=== PATIENT | female | born 1955 | race Caucasian/White ===

== ENCOUNTER 2016-08-29 01:40 | Inpatient (IN) | payer OTHER ==
--- NOTE | ~2016-08-29 | CON ---
PATIENT'S NAME: QUINTON POWELL [facility] AGE: 61 Y [address] ROOM: [address] [address] LOCATION: GICU ADMIT DATE: 08/29/2016 Consultation DISCHARGE DATE: FAMILY PHYSICIAN: PHYSICIAN, UNKNOWN ATTENDING PHYSICIAN: EMELINA BRAUN I was called emergently to the garage laborer to intubate for Dr. Garcia for a garage laborer procedure on a patient who had been life-flighted to the hospital. She was responsive with no blood pressures. She was cyanotic in her hands and feet. It was decided initially that any attempted intubation would lower her blood pressures more with any type of induction agents, so awaited for the procedure to start. In the mid of garage laborer procedure, the patient transitioned to an apparent code status, and I did give her 25 mg of ketamine and 120 mg of succinylcholine and intubated her with a 7.5 ET tube with a positive visualization of her vocal cords, bilateral chest rise, positive end-tidal CO2, bilateral breath sounds. There was no O2 saturation at that point, which was thought to be secondary to her poor perfusion status and partial code blue situation. After 10 minutes, there was still no SaO2, but continued to have bilateral positive breath sounds and was left in the care of the respiratory therapy team for potential transport or of code situation. SUSIE C CARA LEDEZMA CRNA TCMustapha/modl /[id number] d: 08/29/16 0417 t: 08/30/16 1104, CONSULTATION REPORT
--- NOTE | ~2016-08-29 | DS ---
PATIENT'S NAME: QUINTON POWELL [facility] AGE: 61 Y [address] ROOM: [place] [address] LOCATION: [facility] ADMIT DATE: 08/29/2016 Discharge Summary DISCHARGE DATE: 08/29/2016 FAMILY PHYSICIAN: Physician, Unknown ATTENDING PHYSICIAN: Emelina Braun Summary DATE OF : 08/29/2016 at 4:04 a.m. DIAGNOSES: 1. Cardiogenic shock. 2. Hypotension, despite being on 4 pressors with intermittent boluses of epinephrine. 3. Hypoxia on 10 L of oxygen. 4. Acute coronary syndrome. The patient was brought emergently and airlifted from [facility] to the cardiac laborer filter plant at [facility]. Upon arrival, the patient was hypotensive with blood pressure in the 60s as well as mottled skin, cold, and clammy, and she was in a diagnosis of cardiogenic shock. Pulse was very feeble, however, able to get pulse and placed Impella for support immediately, and despite aggressive volume resuscitation, Impella without any significant output. She went into asystole, and the code was ran according to the ACLS protocol. She also had a sinus rudi as well as episodes of idioventricular rhythm with heart rates in the 20s, and pacemaker was placed, and she was paced at about 80 beats per minute. Anesthesia was also present in the room, and once she was severely hypoxic, she was intubated by them on 100%. Code was run for approximately 30 minutes according to the ACS protocol without any significant return of blood pressure or pulse. She was in asystole, and code was called, and the patient was pronounced in the laborer filter plant. I did discuss with the family members, and they declined autopsy at this time. EMELINA BRAUN MD AT/modl /[id number] d: 08/29/16 1325 t: 09/01/16 1738, DISCHARGE SUMMARY
--- NOTE | ~2016-08-29 | HP ---
[facility] 61 Y [address] ROOM: [place] [address] LOCATION: [facility] ADMIT DATE: 08/29/2016 History & Physical DISCHARGE DATE: 08/29/2016 FAMILY PHYSICIAN: PHYSICIAN, UNKNOWN ATTENDING PHYSICIAN: EMELINA BRAUN REASON FOR TRANSFER: Cardiogenic shock/hypotension/acute coronary syndrome. HISTORY OF PRESENTING ILLNESS: The patient is a 61-year-old female, who was in the emergency room at [place] and found to be hypotensive with blood pressure of 40/20 mmHg. Dopamine drip was started and EKG was obtained. The patient had marked ST depressions in inferior, anterolateral leads with ST elevation in leads AVR and V1. The patient complained of chest pain initially and shortness of breath as well per ER physician in [place]. She does not have any significant cardiac history in the past, she does have history of depression and fibromyalgia. The patient was airlifted on max doses of dopamine, epinephrine, norepinephrine, and phenylephrine drips. Her blood pressure was in the 60s on 4 pressors, and during transfer, she required intermittent boluses of epinephrine to keep improve her blood pressure. She was saturating about 90% on 10 L of oxygen when she arrived to the labor relations teacher. When she came in to the labor relations teacher, here her skin was mottled and she was cold, and she was awake. She did not complain of any significant chest pain. REVIEW OF SYSTEMS: Unable to obtain due to critical situation the patient was in and urgency to proceed with cath. PAST MEDICAL HISTORY: Depression and fibromyalgia. PAST SURGICAL HISTORY: Not known. FAMILY HISTORY: Not known. SOCIAL HISTORY: The patient has a family, and her family is here in the waiting room. PATIENT'S NAME: SHERRY [facility] AGE: 61 Y [address] ROOM: [place] [address] LOCATION: [facility] ADMIT DATE: 08/29/2016 History & Physical DISCHARGE DATE: 08/29/2016 FAMILY PHYSICIAN: , UNKNOWN ATTENDING PHYSICIAN: EMELINA BRAUN PHYSICAL EXAMINATION: VITAL SIGNS: Blood pressure 60 mmHg systolic, respirations 28, and O2 saturations 90% on 10 L. NECK: Positive JVD, rapid rate. HEENT: Mucous membranes dry. SKIN: Mottled and cold. EYES: No xanthelasma. Sclerae white. NECK: Supple. ABDOMEN: Obese. Bowel sounds are positive. EXTREMITIES: Pulse thready, 1+, bilateral femoral. No lower extremity edema. NEUROLOGIC: She is awake and in severe distress. LABORATORY DATA: Unable to obtain in [place]. EKG: Atrial fibrillation with right bundle-branch block. Diffuse ST depressions in inferior and anterolateral leads with ST elevation in leads AVR and V1. IMPRESSION: 1. Cardiogenic shock. 2. Hypotension, on max doses of 4 pressors including epinephrine, norepinephrine, dopamine, and phenylephrine, and requiring intermittent doses of epinephrine boluses. 3. Hypoxia, on 10 L of oxygen saturating 90%. 4. Acute coronary syndrome based on the ECG finding and presentation of cardiogenic shock and ST elevation in AVR and V1 with diffuse ST depressions. She likely had left main stenosis or critical triple-vessel disease. PLAN: The patient was in the labor relations teacher and femoral a access was obtained immediately, and an Impella was placed to help with hemodynamic support given her cardiogenic shock and hypotension despite being on 4 pressors. She went into asystole, and the code was ran according to the ACLS protocol for about 30 minutes. Despite Impella being placed, she was not having enough cardiac output, at one point she did have up to 1.5 L, and fluid boluses were given directly through the sheath were also given. A transvenous pacemaker was also placed due to severe sinus bradycardia and idioventricular rhythm with heart rate in the 20s and we paced her at 80 beats per minute. CPR was performed according to the ACLS code protocol. She received multiple doses ofepinephrine, atropine, vasopressin, sodium bicarb according to the protocol,and we were just not able to achieve any blood pressure or pulse, and after 30 minutes, the code was called. The patient was pronounced in the cath PATIENT'S NAME: QUINTON POWELL [facility] AGE: 61 Y [address] ROOM: [address] [address] LOCATION: [facility] ADMIT DATE: 08/29/2016 History & Physical DISCHARGE DATE: 08/29/2016 FAMILY PHYSICIAN: PHYSICIAN, UNKNOWN ATTENDING PHYSICIAN: EMELINA BRAUN lab. I discussed with the family members regarding her critical situation when she arrived and they understand. They do not want any autopsy at this time. Cause of is likely cardiogenic shock, acute coronary syndrome, and hypotension. EMELINA BRAUN MD AT/nishant /[id number] D: [id number] T: [id number] HISTORY & PHYSICAL
--- NOTE | ~2016-08-29 | CATH ---
Cardiac Diagnostic + PCI Report Demographics Patient Name SHERRY ALCANTARA Gender Female Date of 1955 Age 61 year(s) Patient Number [id number] Date of Study 08/29/2016 Visit Number [id number] Room Number G6[address] [place] [id number] Ht Wt 95.5 kg Accession Number [id number] Referring Stemper Charmaine SOLORZANO Primary Physician Physician Performing [facility] Secondary Physician Physician Makayla BENTON Diagnostic [facility] Assisting Physician Physician Makayla BENTON Interventional [facility] Physician Water Plumber Physician Makayla BENTON Addendum Edits completed on documentation Findings and Conclusions Diagnostic Findings and Conclusion Cardiogenic Shock Hypotension on max dose of 4 pressors (epi, norepi, phenylephrine and dopamine and intermittent iv pushes of epi to maintain SBP). Upon arrival to cardiac labor delivery specialist, SBP was in the 60's Acute Coronary Syndrome with WEI in leads V1, aVR, RBBB and diffuse ST depression in the rest of the leads, suggestive of LM/critical triple vessel CAD Hypoxia on 10 L of oxygen Diagnostic Recommendations Impella placement for cardiogenic shock followed by cardiac cath. Interventional Findings and Conclusion Successful placement of impella via rt femoral artery access for cardiogenic shock, persistent hypotension on max doses of 4 pressors as listed above. Patient continued to decompensate, despite impella placement and vasopressors. She had worsening shortness of breath, worsening hypoxia, and went into asystole and ACLS protocol was followed. Temp pacer placed as well to help with episodes of severe bradycardia. Patient was intubated emergently by anesthesia team to help maintain sats. Patient did not have pulse and continued to be in asystole. Code was terminated. Interventional Recommendations Patient in the Production Assistant at 0404. No coronary angiography performed. I informed patient's family, they were not interested in autopsy. Procedure Description The patient was brought to the diagnostic cardiac catheterization-EP laboratory by emergency personal. Physician deemed procedure as EMERGENT. The planned puncture-incision site(s) were shaved and prepped with ChloraPrep and draped in the usual sterile manner. Supplemental oxygen was delivered by a registered nurse under physician guidance. Surface ECG rhythm, blood pressure measurement, and pulse oximetry were monitored throughout the procedure. Arterial access. The access site was infiltrated with lidocaine. The vessel was entered with the Seldinger technique. A sheath was advanced into the vessel and used for catheter placement. Venous access. The access site was infiltrated with lidocaine. The vessel was entered with the Seldinger technique. A sheath was advanced into the vessel and used for catheter placement. Impella Insertion: An Iliac angio was performed. A 6FR sheath was placed into the artery. An Amplatz Super Stiff wire was advanced into the ascending aorta. Multiple dilations were performed on the femoral artery to ultimately place a 14 FR sheath. Once that was accomplished the AL catheter was then placed into the left ventricular cavity and the Amplatz wire was withdrawn. A .018 wire was then preshaped and placed into the left ventricle. Subsequently, the Impella device was placed into the left ventricle and could be seen to be in the cardiac apex. Placement was confirmed using fluoro and the Impella console. Temporary pacing. Pacing was achieved from the right ventricular apex. Threshold verification and amplitude adjustment were performed. The temporary pacemaker was removed at the end of the procedure. Patient continued to deteriorate. CPR initiated and continued for several minutes. Pulse was checked several times and unable to palpate. Latonia Martinez was called at 0404 and patient in the Production Assistant. Diagnostic Cath Status: Salvage Interventional Cath Status: Salvage Procedure Procedure Type Diagnostic procedure:Support:, Temporary Pacemaker PCI procedure:Support:, Impella:, Insertion Indications: Acute AK and Cardiogenic shock. Procedure Data Procedure Date Date: 08/29/2016Start: 03:11 AMEnd: 04:25 AM Entry Locations - Retrograde Percutaneous access was performed through the Right Femoral artery. A 6 Fr sheath was inserted. This was exchanged for a 10 Fr sheath. The sheath was exchanged again for a 14 Fr sheath. Entry Comments: Site used for Impella insertion. - Percutaneous access was performed through the Left Femoral vein (Primary location). A 6 Fr sheath was inserted. Procedure Medications Order and Administration + + + + + !Time !Medication !Dosage !Route ! + + + + + !08/29/2016 03:17 !Heparin (ACC_3) !4000 units !I.V. ! !AM ! ! ! ! + + + + + !08/29/2016 03:20 !Angiomax (Bivalirudin) !70 mg !I.V. bolus ! !AM !(ACC_5) ! ! ! + + + + + !08/29/2016 03:22 !Angiomax (Bivalirudin) !1.75 mg/kg/hr!I.V. drip ! !AM !(ACC_5) ! ! ! + + + + + !08/29/2016 03:25 !Zofran !4 mg !I.V. ! !AM ! ! ! ! + + + + + !08/29/2016 03:31 !Atropine !1 mg !I.V. ! !AM ! ! ! ! + + + + + !08/29/2016 03:32 !Epinephrine !1 mg !I.V. ! !AM ! ! ! ! + + + + + !08/29/2016 03:40 !Epinephrine !1 mg !I.V. ! !AM ! ! ! ! + + + + + !08/29/2016 03:45 !Epinephrine !1 mg !I.V. ! !AM ! ! ! ! + + + + + !08/29/2016 03:51 !Sodium Bicarbonate (Bolus) !1 mg !I.V. bolus ! !AM ! ! ! ! + + + + + !08/29/2016 03:52 !Epinephrine !1 mg !I.V. ! !AM ! ! ! ! + + + + + !08/29/2016 03:56 !Sodium Bicarbonate (Bolus) !1 mg !I.V. bolus ! !AM ! ! ! ! + + + + + !08/29/2016 04:00 !Epinephrine !1 mg !I.V. ! !AM ! ! ! ! + + + + + !08/29/2016 04:02 !Sudhakar-Synephrine !200 mcg !I.V. bolus ! !AM !(Phenylephrine) ! ! ! + + + + + !08/29/2016 04:02 !Epinephrine !1 mg !I.V. ! !AM ! ! ! ! + + + + + !08/29/2016 04:04 !Vasopressin !40 units !I.V. ! !AM ! ! ! ! + + + + + !08/29/2016 03:35 !Succinylcholine !120 mg !I.V. ! !AM ! ! ! ! + + + + + Devices Used - A6 Fr. BS Angled Pigtail Diag. Catheterwas used for:Impella Placement.Unable to cannulate the vessel. - A5 Fr. BS JR 4 Diag. Catheterwas used for:Impella Placement.Unable to cannulate the vessel. - A5 Fr. BS AL1 Diag. Catheterwas used for:Impella Placement.Unable to cannulate the vessel. - A6 Fr. BS Angled Pigtail Diag. Catheterwas used for:Impella Placement. - A5 Fr. BS JL 3.5 Diag. Catheterwas used for:Was not used. - A5 Fr. BS JL 4 Diag. Catheterwas used for:Was not used. Contrast Material - Isovue 3700 ml Fluoroscopy Time: Diagnostic: 8:54 minutes. Total: 8:54 minutes. Fluoroscopy Dose: Diagnostic: 300 mGy. Total: 300 mGy. Other Mechanical Ventricular Support: Inserted during procedure and prior to PCI. Medical History Performed Procedures and Imaging Results - No ACC stress or imaging studies were performed. Allergies - No known allergies. Admission Data Admission Date: 08/29/2016 Admission Time: 01:49 AM Admit Source: Transfer acute care facility Insurance Payors: None. Clinical Evaluation Leading to Procedure - The patient's CAD presentation was assessed as: STEMI.The symptom onset was first noted on 08/29/2016 12:30 AM(time was estimated). - The patient's anginal syndrome during the past two weeks was assessed as: Class IV according to the [place] Cardiovascular Society Classification System (CCS). - The patient has been in a state of cardiogenic shock within the last 24 hrs. Hemodynamics Condition: Rest Heart Rate: 78 bpm Pressures (mmHg) +-----+ + !Site !Pressure ! +-----+ + !FA !83/48 (59) ! +-----+ + !AO !/ () ! +-----+ + !AO !/ () ! +-----+ + !AO !/ (15) ! +-----+ + Discharge Data Discharge Date: 08/29/2016 Hospital Status: Inpatient Signatures dtt: MAKAYLA BRAUN dtd: 08/29/16 0311 Physician Self Edit
[2016-08-29 04:03] LABS: BICARBONATE 7.6 mmol/L (18.0-23.0); LACTATE 9.7 mEq/L (0.50-1.60); PCO2 27 mmHg (35-45); PO2 158 mmHg (80-90)
[2016-08-29 04:04] LABS: BASOPHIL # 0.1 K/uL (0.0-0.2); BASOPHIL % 0.6 %; EOSINOPHIL % 0.4 %; HEMATOCRIT 35.8 % (33.0-46.0); HEMOGLOBIN 11.4 g/dL (10.0-15.0); IMMATURE GRANULOCYTE # 0.1 K/uL (0.0-0.3); IMMATURE GRANULOCYTE % 0.7 %; LYMPHOCYTE # 2.3 K/uL (0.8-4.0); LYMPHOCYTE % 22.8 %; MCH 29.1 pg (27.0-34.0); MCHC 31.8 gm/dL (32.0-36.5); MCV 91.3 fl (83.0-98.0); MONOCYTE # 0.1 K/uL (0.0-1.0); MONOCYTE % 1.4 %; NEUTROPHIL # (ANC) 7.3 K/uL (1.8-7.8); NEUTROPHIL % 74.1 %; NRBC % 0 /100WBC (0-0.00); PLATELET COUNT 194 K/uL (150-450); RBC 3.92 M/uL (3.50-5.50); RDW-CV 12.5 % (11.9-14.6); WBC 9.9 K/uL (4.0-11.0)
[2016-08-29 04:26] LABS: ALBUMIN 2.6 gm/dL (3.5-5.0); CREATININE 1.2 mg/dL (0.5-1.1); MAGNESIUM 1.9 mg/dL (1.3-2.6); POTASSIUM 3.2 mMol/L (3.7-5.1); TOTAL BILIRUBIN 0.8 mg/dL (0.0-1.5)
[2016-08-29 04:32] LABS: ANION GAP 26.2 (10.0-19.0)
[2016-08-29 04:39] LABS: PROTIME > 200.0 SECONDS (9.6-11.1); PTT > 300 SECONDS (25-32)
[2016-08-29 04:40] LABS: CALCIUM 6.5 mg/dL (8.5-10.5); TOTAL PROTEIN 4.8 g/dL (6.0-8.4)
== END 2016-08-29 05:44 | disposition expired | DRG 219 ==
LOC: GPCU 01:40 → GICU 01:49
PROVIDERS: ADMIT Internal Medicine Interventional Cardiology
PROC: 5A1213Z Performance of Cardiac Pacing, Intermittent (ICD-10-PCS; principal; 2016-08-29)
PROC: 5A0221D Assistance with Cardiac Output using Impeller Pump, Continuous (ICD-10-PCS; principal; 2016-08-29)
PROC: 0BH17EZ Insertion of Endotracheal Airway into Trachea, Via Natural or Artificial Opening (ICD-10-PCS; principal; 2016-08-29)
PROC: 5A1935Z Respiratory Ventilation, Less than 24 Consecutive Hours (ICD-10-PCS; principal; 2016-08-29)
PROC: 5A12012 Performance of Cardiac Output, Single, Manual (ICD-10-PCS; principal; 2016-08-29)
DX: I21.4 Non-ST elevation (NSTEMI) myocardial infarction (principal); J96.01 Acute respiratory failure with hypoxia; R57.0 Cardiogenic shock; I44.2 Atrioventricular block, complete; R00.1 Bradycardia, unspecified; I95.9 Hypotension, unspecified; I48.91 Unspecified atrial fibrillation; I24.9 Acute ischemic heart disease, unspecified; M79.7 Fibromyalgia; F32.9 Major depressive disorder, single episode, unspecified
CPT/HCPCS: C1769; C1779; C1894; J0171; J0583; J1644; J2370; J2405; J7040; J7050; J7060